=== PATIENT | male | born 1985 | race Caucasian/White ===

== ENCOUNTER 2017-01-22 02:47 | Emergency (ER) | payer SELFPAY ==
[2017-01-22 03:11] VITALS: BP 133/74; PULSE 74; RESP 16; TEMP 97.9; O2SAT 98
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
== END 2017-01-22 03:27 | disposition home or self-care (01) ==
DX: Z02.89 Encounter for other administrative examinations (principal); J45.909 Unspecified asthma, uncomplicated; F17.200 Nicotine dependence, unspecified, uncomplicated